=== PATIENT | male | born 1965 | race Hispanic/Latino ===

== ENCOUNTER 2021-03-07 16:00 | Emergency (ER) | payer MEDICARE ==
[2021-03-07] MEDS ORDERED: ACETAMINOPHEN 500 MG TAB PO ONE (17:46)
[2021-03-07] MEDS ORDERED: SODIUM CHLORIDE 0.9% 500 ML 500 ML IV ONE (17:46)
--- NOTE | 2021-03-07 17:58 | Emergency Department Report ---
ED General Adult HPI - General Chief complaint: Pain General Stated complaint: BODY PAIN Time Seen by Provider: 03/07/21 17:26 Source: EMS Mode of arrival: Stretcher Limitations: Altered Mental Status - History of Present Illness Initial comments: Patient is a 54-year-old male here with complaints of body pain. Patient has history of stroke and cannot give me any additional information. I attempted to call patient's nursing facility and I was hung up on. Severity scale (0 -10): 5 - Related Data Previous Rx's Medication Instructions Recorded Last Taken Type Sulfamethoxazole/Trimethoprim 1 each PO BID 5 Days #10 tablet 03/07/21 Unknown Rx [Bactrim DS TAB] Allergies Allergy/AdvReac Type Severity Reaction Status Date / Time iodine Allergy Unknown Verified 03/07/21 16:14 shellfish derived Allergy Unknown Verified 03/07/21 16:13 ED Review of Systems ROS: Stated complaint: BODY PAIN Other details as noted in HPI Comment: Unobtainable due to pts medical conditions ED Past Medical Hx - Past Medical History Previous Medical History?: Yes Hx CVA: Yes Hx COPD: Yes Additional medical history: AFIB - Medications Home Medications: Home Medications Medication Instructions Recorded Confirmed Last Taken Type Sulfamethoxazole/Trimethoprim 1 each PO BID 5 Days #10 tablet 03/07/21 Unknown Rx [Bactrim DS TAB] ED Physical Exam - General Limitations: Altered Mental Status General appearance: alert, in no apparent distress - Head Head exam: Present: atraumatic, normocephalic - Eye Eye exam: Present: normal appearance - ENT ENT exam: Present: mucous membranes dry - Neck Neck exam: Present: normal inspection - Respiratory Respiratory exam: Present: normal lung sounds bilaterally. Absent: respiratory distress - Cardiovascular Cardiovascular Exam: Present: regular rate, normal rhythm. Absent: systolic murmur, diastolic murmur, rubs, gallop - GI/Abdominal GI/Abdominal exam: Present: soft, normal bowel sounds. Absent: tenderness - Rectal Rectal exam: Present: deferred - Extremities Exam Extremities exam: Present: normal inspection - Back Exam Back exam: Present: normal inspection - Neurological Exam Neurological exam: Present: alert, other (At his baseline mental status secondary to stroke) - Psychiatric Psychiatric exam: Present: normal affect, normal mood - Skin Skin exam: Present: warm, dry, intact, normal color. Absent: rash ED Course Vital Signs 12/03/07/21 03/07/21 16:01 18:00 20:05 Temperature 97.7 F 98.3 F Pulse Rate 60 91 H Respiratory 16 22 18 Rate Blood Pressure 126/60 110/65 [Right] O2 Sat by Pulse 96 96 98 Oximetry - Reevaluation(s) Reevaluation #1: 03/07/21 19:22 Patient apparently stopped the Tylenol Advil for neck exam. Patient's labs are notable for mild hypernatremia at 147, mildly elevated creatinine at 1.8 with history of acute kidney injury. Will give gentle fluid bolus. Patient will also need urine studies given as well. Bilirubin is also mildly elevated so will obtain right upper quadrant ultrasound. 03/07/21 23:58 No specific findings on right upper quadrant ultrasound. Patient's urinalysis was notable for UTI. Plan for patient to follow-up with primary care, will place patient on antibiotics for UTI. ED Medical Decision Making - Lab Data Result diagrams: 03/07/21 18:10 03/07/21 18:10 - Radiology Data Radiology results: report reviewed, image reviewed - Medical Decision Making Patient is a 54-year-old male here with complaint of body pain. On exam patient does not have any tenderness to his extremities. Plan for basic work-up to evaluate cardiac, renal, liver functions. Will give small bolus of fluids as patient does appear clinically dry will reassess and reattempt to call patient's facility for further information. Critical care attestation.: If time is entered above; I have spent that time in minutes in the direct care of this critically ill patient, excluding procedure time. ED Disposition Clinical Impression: UTI (urinary tract infection), Total body pain Disposition: [facility] Is pt being admited?: No Does the pt Need Aspirin: No Condition: Stable Instructions: Urinary Tract Infection, Adult, [id number] Prescriptions: Sulfamethoxazole/Trimethoprim [Bactrim DS TAB] 1 each PO BID 5 Days #10 tablet Referrals: ALEJANDRO KING MD [Primary Care Provider] - 3-5 Days FELICITA OLIVER MD [Referring] - 3-5 Days (If you need a Primary care doctor)
[2021-03-07 18:21] LABS: Basophils # (Auto) 0.1 K/mm3 (0.0-0.1); Basophils % (Auto) 0.8 % (0.0-1.8); Eosinophils # (Auto) 0.1 K/mm3 (0.0-0.4); Eosinophils % (Auto) 0.9 % (0.0-4.3); Hematocrit 42.2 % (35.5-45.6); Hemoglobin 13.7 gm/dl (11.8-15.2); Lymphocytes # (Auto) 1.6 K/mm3 (1.2-5.4); Lymphocytes % (Auto) 19.6 % (13.4-35.0); Mean Corpuscular HGB Conc 32 % (32-34); Mean Corpuscular Volume 98 fl (84-94); Monocytes # (Auto) 0.9 K/mm3 (0.0-0.8); Monocytes % (Auto) 10.8 % (0.0-7.3); Platelet Count 130 K/mm3 (140-440); Red Blood Count 4.32 M/mm3 (3.65-5.03); Red Cell Distribution Width 14.8 % (13.2-15.2)
--- NOTE | 2021-03-07 18:22 | XRay Report ---
CHEST 1 VIEW, 03/07/2021 5:55 PM CLINICAL INFORMATION/INDICATION: Chest pain COMPARISON: None. FINDINGS: SUPPORT DEVICES: None. HEART: There is mild enlargement of the cardiac silhouette. LUNGS/PLEURA: Diffuse bilateral faint interstitial markings are noted. There is no focal consolidatio n or pleural effusion. ADDITIONAL FINDINGS: No additional acute findings. IMPRESSION: 1. Mild enlargement of the cardiac silhouette. 2. Mildly prominent interstitial markings which may suggest pulmonary vascular congestion. Signer Name: Estefany Bernstein MD Signed: 03/07/2021 6:18 PM Workstation Name: [id number]
[2021-03-07 18:42] LABS: Alanine Aminotransferase 11 units/L (7-56); BUN/Creatinine Ratio 20; Blood Urea Nitrogen 36 mg/dL (9-20); Calcium 9.1 mg/dL (8.4-10.2); Hemolysis Index 10
[2021-03-07 20:43] LABS: Bilirubin,Urine NEG (Negative); Blood,Urine NEG (Negative); Color,Urine Yellow (Yellow); Mucus,Urine FEW /HPF; Protein,Urine <15 mg/dL mg/dL (Negative)
[2021-03-07] MEDS ORDERED: cefTRIAXone/NS 1 GM/50 ML 1 GM/50 ML BAG IV ONE (21:02)
--- NOTE | 2021-03-07 22:57 | Ultrasound Report ---
ULTRASOUND ABDOMEN, LIMITED (RIGHT UPPER QUADRANT) INDICATION: Elevated bilirubin. COMPARISON: None available. FINDINGS: Pancreas: Mostly obscured by bowel gas without a distinct abnormality. Liver: Limited visualization due to the presence of bowel gas. Increased, coarse echotexture is noted throughout the liver without distinct focal lesions. The portal vein is not clearly visualized. Gallbladder: Distended without visualization of stones, wall thickening or pericholecystic fluid. So nographic Bosch's sign: Not performed. Bile ducts: No distinct intrahepatic biliary ductal dilatation. The common duct is not visualized. Free fluid: None. Additional Findings: None. IMPRESSION: 1. Limited exam due to the presence of bowel gas and the patient's body habitus. 2. No distinct biliary ductal dilatation. 3. Nonspecific gallbladder distension without sonographic evidence of cholelithiasis or acute cholecy stitis. 4. Increased hepatic echotexture, most commonly representing steatosis. Signer Name: Trey Mead MD Signed: 03/07/2021 10:53 PM Workstation Name: [id number]
[2021-03-08 09:18] VITALS: BP 143/74
--- NOTE | 2021-03-08 17:35 | Electrocardiograph Report ---
[facility] Test Date: 2021-03-08 Test Time: 00:01:45 Pat Name: EZIO AGUILAR Department: Room: Gender: M Moccas[place] Sewer: JOSEFA : 1965 Requested By: JULIA AGOSTO Order Number: [id number] Reading MD: Juan Rubio Measurements Intervals [place] Rate: 93 P: MD: QRS: 50 QRSD: 96 T: -65 QT: 395 QTc: 491 Interpretive Statements Atrial fibrillation No previous ECG available for comparison Electronically Signed On 03-08-2021 17:34:34 EST by Juan Rubio
== END 2021-03-08 09:15 ==
LOC: ED 17:37
DX: N39.0 Urinary tract infection, site not specified (principal); M79.18 Myalgia, other site; J44.9 Chronic obstructive pulmonary disease, unspecified; Z88.6 Allergy status to analgesic agent; Z91.013 Allergy to seafood; Z79.899 Other long term (current) drug therapy
CPT/HCPCS: 36415; 71045; 76705; 80053; 81001; 82550; 83735; 83880; 84484; 85025; 87076; 87086; 87186; 93005; 96361; 96365; 99284; J0696; J7040